=== PATIENT | female | born 2000 | race American Indian/Alaskan Native ===

== ENCOUNTER 2019-01-27 04:04 | Inpatient (IN) | payer MEDICAID ==
[2019-01-27] MEDS ORDERED: Tranexamic Acid 1,000 MG in Sodium Chloride 0.9% 100 ML IV PRN (05:26)
[2019-01-27] MEDS ORDERED: Lidocaine 1% 50 ML MDV INJECT PRN (05:26)
[2019-01-27] MEDS ORDERED: Nalbuphine 10 MG/1 ML Vial IVPUSH PRN (05:26)
[2019-01-27] MEDS ORDERED: Misoprostol 200 MCG Tab PO PRN (05:26)
[2019-01-27] MEDS ORDERED: Methylergonovine 0.2 MG/1 ML Amp IM PRN (05:26)
[2019-01-27] MEDS ORDERED: Sodium Chloride 0.9% 10 ML Syringe FLUSH PRN (05:26)
[2019-01-27] MEDS ORDERED: Misoprostol 25 MCG (1/4 of 100 MCG) Tab PO PRN (05:26)
[2019-01-27] MEDS ORDERED: Butorphanol 1 MG/ML SDV IVPUSH PRN (05:26)
[2019-01-27] MEDS ORDERED: Water For Irrigation,Sterile 1,000 ML Container IRR PRN (05:26)
[2019-01-27] MEDS ORDERED: Carboprost Tromethamine 250 MCG/1 ML Amp IM PRN (05:26)
[2019-01-27] MEDS ORDERED: Sodium Chloride 0.9% 2.5 ML Syringe FLUSH PRN (05:26)
[2019-01-27] MEDS ORDERED: Misoprostol 25 MCG (1/4 of 100 MCG) Tab VAG PRN (05:26)
[2019-01-27] MEDS ORDERED: Sodium Chloride 0.9% 10 ML SDV IV PRN (05:26)
[2019-01-27] MEDS ORDERED: Terbutaline 1 MG/ML SDV SUBCUT PRN (05:26)
[2019-01-27] MEDS ORDERED: Oxytocin/0.9 % Sodium Chloride 30 UNIT/500 ML BAG IV SCH ×3 (05:30→17:30)
[2019-01-27] MEDS ORDERED: Misoprostol 25 MCG (1/4 of 100 MCG) Tab ONE (10:08)
[2019-01-27] MEDS ORDERED: Misoprostol 50 MCG (1/2 of 100 MCG) Tab PO SCH (10:15)
[2019-01-27] MEDS: Lactated Ringers 1,000 ML IV SCH ×2 (13:22→17:31)
[2019-01-27] MEDS ORDERED: fentaNYL 100 MCG/2 ML SDV ONE (14:47)
--- NOTE | 2019-01-27 16:07 | PCM.PREANE ---
Preanesthetic Assessment - Anesthesia/Transfusion/Family Hx Anesthesia History: No Prior Anesthesia Family History of Anesthesia Reaction: No Transfusion History: No Prior Transfusion(s) Intubation History: Unknown - Review of Systems General: No Symptoms Pulmonary: No Symptoms Cardiovascular: No Symptoms Gastrointestinal: Abdominal Pain (labor pain) Neurological: No Symptoms Other: Reports: None - Physical Assessment Height: 5 ft 2 in Weight: 92.986 kg ASA Class: 2 Mental Status: Alert & Oriented x3 Airway Class: Mallampati = 2 Dentition: Reports: Normal Dentition Thyro-Mental Finger Breadths: 3 Mouth Opening Finger Breadths: 3 ROM/Head Extension: Full Lungs: Clear to Auscultation, Normal Respiratory Effort Cardiovascular: Regular Rate, Regular Rhythm - Lab Values: Laboratory Last Values WBC 11.40 K/uL (4.0-11.0) H 01/27/19 06:31 RBC 4.32 M/uL (4.30-5.90) 01/27/19 06:31 Hgb 10.1 g/dL (12.0-16.0) L 01/27/19 06:31 Hct 33.6 % (36.0-46.0) L 01/27/19 06:31 MCV 77.8 fL (80.0-98.0) L 01/27/19 06:31 MCH 23.4 pg (27.0-32.0) L 01/27/19 06:31 MCHC 30.1 g/dL (31.0-37.0) L 01/27/19 06:31 RDW Std Deviation 44.9 fl (28.0-62.0) 01/27/19 06:31 RDW Coeff of Rober 16 % (11.0-15.0) H 01/27/19 06:31 Plt Count 212 K/uL (150-400) 01/27/19 06:31 MPV 10.30 fL (7.40-12.00) 01/27/19 06:31 Nucleated RBC % 0.0 /100WBC 01/27/19 06:31 Nucleated RBCs # 0 K/uL 01/27/19 06:31 Blood Type O POSITIVE 01/27/19 06:31 Antibody Screen NEGATIVE 01/27/19 06:31 - Allergies Allergies/Adverse Reactions: Allergies Allergy/AdvReac Type Severity Reaction Status Date / Time No Known Allergies Allergy Verified 01/27/19 04:19 - Blood Blood Available: No - Anesthesia Plan Pre-Op Medication Ordered: None - Acknowledgements Anesthesia Type Planned: Epidural Pt an Appropriate Candidate for the Planned Anesthesia: Yes Alternatives and Risks of Anesthesia Discussed w Pt/Guardian: Yes Pt/Guardian Understands and Agrees with Anesthesia Plan: Yes PreAnesthesia Questionnaire - Past Health History Medical/Surgical History: Denies 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: Hematologic History: Reports: Anemia - HOME MEDS Home Medications: Home Meds Vits #93/Iron Fum/FA [ Formula Tablet] 1 each PO DAILY [History] - CURRENT (IN HOUSE) MEDS Current Meds: Current Medications Butorphanol Tartrate (Stadol) 1 mg IVPUSH Q1H PRN PRN Reason: Pain Carboprost Tromethamine (Hemabate Ds) 250 mcg IM ASDIRECTED PRN PRN Reason: Post Hemorrhage Tranexamic Acid 1,000 mg/ (Sodium Chloride) 110 mls @ 660 mls/hr IV ONETIME PRN PRN Reason: Bleeding Lactated Ringer's (Ringers, Lactated) 1,000 mls @ 150 mls/hr IV ASDIRECTED [place] Last Admin: 01/27/19 13:22 Dose: 999 mls/hr Oxytocin/Sodium Chloride (Oxytocin 30 Unit/500 Ml-Ns) 30 unit in 500 mls @ 999 mls/hr IV TITRATE [facility] Lidocaine HCl (Xylocaine 1%) 50 ml INJECT ONETIME PRN PRN Reason: Laceration repair Methylergonovine Maleate (Methergine) 0.2 mg IM ASDIRECTED PRN PRN Reason: Post Hemorrhage Misoprostol (Cytotec) 200 mcg PO ONETIME PRN PRN Reason: Post Hemorrhage Misoprostol (Cytotec) 50 mcg PO Q4H [facility] Nalbuphine HCl (Nubain) 10 mg IVPUSH Q1H PRN PRN Reason: Pain (severe 7-10) Last Admin: 01/27/19 14:21 Dose: 10 mg Sodium Chloride (Saline Flush) 10 ml FLUSH ASDIRECTED PRN PRN Reason: Keep Vein Open Sodium Chloride (Saline Flush) 2.5 ml FLUSH ASDIRECTED PRN PRN Reason: Keep Vein Open Sodium Chloride (Normal Saline) 10 ml IV ASDIRECTED PRN PRN Reason: IV Use Sterile Water (Sterile Water For Irrigation) 1,000 ml IRR ASDIRECTED PRN PRN Reason: delivery Discontinued Medications Fentanyl (Sublimaze) Confirm Administered Dose 100 mcg .ROUTE .STK-MED ONE Stop: 01/27/19 14:48 Oxytocin/Sodium Chloride (Oxytocin 30 Unit/500 Ml-Ns) 30 unit in 500 mls @ 2 mls/hr IV TITRATE [facility]; Protocol Fentanyl/Bupivacaine HCl (Hznyhilh-Mskxa-Au 2 Mcg/Ml-0.125%) Confirm Administered Dose 100 mls @ as directed .ROUTE .Enel OGK-5-MED ONE Stop: 01/27/19 14:49 Misoprostol (Cytotec) 25 mcg PO Q4HR PRN PRN Reason: Cervical Ripening Last Admin: 01/27/19 05:59 Dose: 25 mcg Misoprostol (Cytotec) 25 mcg VAG Q4H PRN PRN Reason: Cervical Ripening Last Admin: 01/27/19 06:00 Dose: 25 mcg Misoprostol (Cytotec) Confirm Administered Dose 50 mcg .ROUTE .Enel OGK-5-MED ONE Stop: 01/27/19 10:09 Last Admin: 01/27/19 10:20 Dose: 50 mcg Terbutaline Sulfate (Brethine) 0.25 mg SUBCUT ASDIRECTED PRN PRN Reason: Tacysystole
[2019-01-27] MEDS ORDERED: Lidocaine 1% 50 ML MDV ONE (20:10)
[2019-01-27] MEDS ORDERED: Benzocaine/Menthol 20%-0.5% Spray 78 GM Cannister TOP PRN (20:12)
[2019-01-27] MEDS ORDERED: Ibuprofen 800 MG Tab PO PRN (20:12)
[2019-01-27] MEDS ORDERED: oxyCODONE 5 MG Tab PO PRN (20:12)
[2019-01-27] MEDS ORDERED: Docusate Sodium 100 MG Cap PO PRN (20:12)
[2019-01-27] MEDS ORDERED: Lanolin 100% Cream 7 GM Tube TOP PRN (20:12)
[2019-01-27] MEDS ORDERED: Ibuprofen 400 MG Tab PO PRN (20:12)
[2019-01-27] MEDS ORDERED: Acetaminophen 500 MG Tab PO PRN ×2 (20:12)
[2019-01-27] MEDS ORDERED: Bisacodyl 10 MG Supp RECTAL PRN (20:12)
[2019-01-27] MEDS ORDERED: Witch Hazel Medicated Pads 40/Jar TOP PRN (20:12)
--- NOTE | 2019-01-28 01:50 | OR ---
SURGEON: Rashaun Willis MD DATE OF PROCEDURE: Ms. Kovacs is 18 years old, primigravida. She is followed in our clinic primarily by me. She had no complication. Her GBS status is negative. She is admitted with a spontaneous rupture of the membrane. At the time of admission, she was dilated to 1 cm, 70% to 80%, vertex -3. She was induced with Cytotec and Pitocin. She responded to that and she progressed somewhat according to the curve and she had epidural anesthesia for labor analgesia at 6 cm. The patient progressed to complete complete, vertex +2, with significant part of the head is visible. The patient was tired and was unable to push beyond that. I was consulted. I came to evaluate the patient. The patient is in an occipitoanterior position, and it is felt to be that it is low down enough to be for a vacuum extraction, and after obtaining consent of the patient and explanation of the vacuum extraction process was done, Kiwi vacuum extraction is performed, and vaginal delivery was accomplished without any problem. The fetus cried immediately, and score and weight is not available at the time of the dictation. The placenta delivered spontaneous, complete, and intact. There was a second-degree perineal laceration. No other laceration. The laceration was repaired in layer by Marely Salgado, nurse reservoir engineering advisor. Estimated blood loss was about 300-350 mL. heart rate was category I. There was no complication during the labor and the delivery process. ROBERT / GRACIA /[id number]
--- NOTE | 2019-01-28 07:51 | PCM48HPAN ---
Post Anesthesia Note - EVALUATION WITHIN 48HRS OF ANESTHETIC Vital Signs in Normal Range: Yes Patient Participated in Evaluation: Yes Respiratory Function Stable: Yes Airway Patent: Yes Cardiovascular Function Stable: Yes Hydration Status Stable: Yes Pain Control Satisfactory: Yes Nausea and Vomiting Control Satisfactory: Yes Mental Status Recovered: Yes Pulse Rate: 91 SaO2: 98 Resp Rate: 16 Temperature: 97.8 F Blood Pressure: 115/64
--- NOTE | 2019-01-28 08:58 | PCM.DCSUM1 ---
Discharge Summary - Hospital Course Free Text/Narrative:: Discharge home with infant. Follow up in 6 weeks for . Diagnosis: Stroke: No - Discharge Data Discharge Date: 01/28/19 Discharge Disposition: Home, Self-Care 01 Condition: Good - Discharge Diagnosis/Problem(s) (1) Vacuum extraction, delivered, current hospitalization SNOMED Code(s): 185963023 ICD Code: O66.5 - ATTEMPTED APPLICATION OF VACUUM EXTRACTOR AND FORCEPS Status: Acute Priority: High Current Visit: Yes - Patient Instructions Diet: Usual Diet as Tolerated Activity: As Tolerated, No Strenuous Activities, Rest and Relax Today Driving: May Drive Today Showering/Bathing: May Shower Notify Provider of: Fever, Increased Pain, Swelling and Redness, Nausea and/or Vomiting Other/Special Instructions: Discharge home with infant. Follow up in 6 weeks for . - Discharge Plan *PRESCRIPTION DRUG MONITORING PROGRAM REVIEWED*: Not Applicable *COPY OF PRESCRIPTION DRUG MONITORING REPORT IN PATIENT DANIA: Not Applicable Prescriptions/Med Rec: Ibuprofen [Motrin] 800 mg PO Q6H PRN #90 tablet PRN Reason: Pain Home Medications: Home Meds Vits #93/Iron Fum/FA [ Formula Tablet] 1 each PO DAILY [History] Ibuprofen [Motrin] 800 mg PO Q6H PRN #90 tablet 01/28/19 [Rx] Oxygen Therapy Mode: Room Air Referrals: [facility] [Outside] Rashaun Willis MD [Physician] - 03/10/19 1:30 pm - Discharge Summary/Plan Comment DC Time >30 min.: No - General Info Date of Service: 01/28/19 Functional Status: Reports: Pain Controlled, Tolerating Diet, Ambulating, Urinating - Review of Systems General: Reports: No Symptoms HEENT: Reports: No Symptoms Pulmonary: Reports: No Symptoms Cardiovascular: Reports: No Symptoms Gastrointestinal: Reports: No Symptoms Genitourinary: Reports: No Symptoms Musculoskeletal: Reports: No Symptoms Skin: Reports: No Symptoms Neurological: Reports: No Symptoms Psychiatric: Reports: No Symptoms - Patient Data Vitals - Most Recent: Last Vital Signs Temp 36.6 C 01/28/19 07:51 Pulse 91 01/28/19 07:51 Resp 16 01/28/19 07:51 BP 115/64 01/28/19 07:51 Pulse Ox 98 01/28/19 07:51 Weight - Most Recent: 92.986 kg Lab Results - Last 24 hrs: Laboratory Results - last 24 hr 01/28/19 Range/Units 06:00 Hgb 8.7 L (12.0-16.0) g/dL Hct 28.3 L (36.0-46.0) % Med Orders - Current: Current Medications Acetaminophen (Tylenol Extra Strength) 500 mg PO Q4H PRN PRN Reason: Pain Acetaminophen (Tylenol Extra Strength) 1,000 mg PO Q4H PRN PRN Reason: Pain Benzocaine/Menthol (Dermoplast Pain Relief 20%-0.5% [place]) 78 gm TOP ASDIRECTED PRN PRN Reason: Perineal Comfort Measure Bisacodyl (Dulcolax) 10 mg RECTAL ONETIME PRN PRN Reason: Constipation Butorphanol Tartrate (Stadol) 1 mg IVPUSH Q1H PRN PRN Reason: Pain Carboprost Tromethamine (Hemabate Ds) 250 mcg IM ASDIRECTED PRN PRN Reason: Post Hemorrhage Docusate Sodium (Colace) 100 mg PO BID PRN PRN Reason: Constipation Emollient Ointment (Lansinoh Hpa) 0 gm TOP ASDIRECTED PRN PRN Reason: Sore Nipples Tranexamic Acid 1,000 mg/ (Sodium Chloride) 110 mls @ 660 mls/hr IV ONETIME PRN PRN Reason: Bleeding Lactated Ringer's (Ringers, Lactated) 1,000 mls @ 150 mls/hr IV ASDIRECTED [place] Last Admin: 01/27/19 17:31 Dose: 125 mls/hr Oxytocin/Sodium Chloride (Oxytocin 30 Unit/500 Ml-Ns) 30 unit in 500 mls @ 999 mls/hr IV TITRATE [place] Last Admin: 01/27/19 20:04 Dose: 999 mls/hr Oxytocin/Sodium Chloride (Oxytocin 30 Unit/500 Ml-Ns) 30 unit in 500 mls @ 2 mls/hr IV TITRATE [facility]; Protocol Last Titration: 01/27/19 18:41 Dose: 4 munits/min, 4 mls/hr Ibuprofen (Motrin) 400 mg PO Q4H PRN PRN Reason: Pain Ibuprofen (Motrin) 800 mg PO Q6H PRN PRN Reason: Pain Last Admin: 01/28/19 05:56 Dose: 800 mg Lidocaine HCl (Xylocaine 1%) 50 ml INJECT ONETIME PRN PRN Reason: Laceration repair Methylergonovine Maleate (Methergine) 0.2 mg IM ASDIRECTED PRN PRN Reason: Post Hemorrhage Misoprostol (Cytotec) 200 mcg PO ONETIME PRN PRN Reason: Post Hemorrhage Misoprostol (Cytotec) 50 mcg PO Q4H [place] Nalbuphine HCl (Nubain) 10 mg IVPUSH Q1H PRN PRN Reason: Pain (severe 7-10) Last Admin: 01/27/19 14:21 Dose: 10 mg Oxycodone HCl (Oxycodone) 5 mg PO Q2H PRN PRN Reason: Pain Sodium Chloride (Saline Flush) 10 ml FLUSH ASDIRECTED PRN PRN Reason: Keep Vein Open Sodium Chloride (Saline Flush) 2.5 ml FLUSH ASDIRECTED PRN PRN Reason: Keep Vein Open Sodium Chloride (Normal Saline) 10 ml IV ASDIRECTED PRN PRN Reason: IV Use Sterile Water (Sterile Water For Irrigation) 1,000 ml IRR ASDIRECTED PRN PRN Reason: delivery Witch Michaela (Tucks) 1 pad TOP ASDIRECTED PRN PRN Reason: comfort care Discontinued Medications Fentanyl (Sublimaze) Confirm Administered Dose 100 mcg .ROUTE .STK-MED ONE Stop: 01/27/19 14:48 Oxytocin/Sodium Chloride (Oxytocin 30 Unit/500 Ml-Ns) 30 unit in 500 mls @ 2 mls/hr IV TITRATE [facility]; Protocol Fentanyl/Bupivacaine HCl (Kzrcikwu-Bnawv-Zr 2 Mcg/Ml-0.125%) Confirm Administered Dose 100 mls @ as directed .ROUTE .STK-MED ONE Stop: 01/27/19 14:49 Lidocaine HCl (Xylocaine 1%) Confirm Administered Dose 50 ml .ROUTE .STK-MED ONE Stop: 01/27/19 20:11 Misoprostol (Cytotec) 25 mcg PO Q4HR PRN PRN Reason: Cervical Ripening Last Admin: 01/27/19 05:59 Dose: 25 mcg Misoprostol (Cytotec) 25 mcg VAG Q4H PRN PRN Reason: Cervical Ripening Last Admin: 01/27/19 06:00 Dose: 25 mcg Misoprostol (Cytotec) Confirm Administered Dose 50 mcg .ROUTE .STK-MED ONE Stop: 01/27/19 10:09 Last Admin: 01/27/19 10:20 Dose: 50 mcg Terbutaline Sulfate (Brethine) 0.25 mg SUBCUT ASDIRECTED PRN PRN Reason: Tacysystole - Exam General: Reports: Alert, Oriented, Cooperative, No Acute Distress Lungs: Reports: Normal Respiratory Effort. Denies: Decreased Breath Sounds GI/Abdominal Exam: Soft, Non-Tender (Female) Exam: Normal External Exam, Vaginal Bleeding Rectal (Female) Exam: Deferred Back Exam: Reports: Normal Inspection, Full Range of Motion Extremities: Normal Inspection, Normal Range of Motion, Non-Tender, No Pedal Edema Skin: Reports: Warm, Dry, Intact Wound/Incisions: Reports: Healing Well Neurological: Reports: No New Focal Deficit, Normal Speech, Normal Tone, Strength Equal Bilateral Psy/Mental Status: Reports: Alert, Normal Affect, Normal Mood
== END 2019-01-28 23:03 | disposition home or self-care (01) | DRG 807 ==
LOC: MW.OBCHECK 04:04 → MW.OB 04:07 → MW.OBCHECK 05:26 → OBSVTOIN 20:03 → MW.OB 01-28 02:55
PROVIDERS: ADMIT Obstetrics & Gynecology; ATTEND Obstetrics & Gynecology
PROC: 10D07Z6 Extraction of Products of Conception, Vacuum, Via Natural or Artificial Opening (ICD-10-PCS; principal; 2019-01-27)
PROC: 0KQM0ZZ Repair Perineum Muscle, Open Approach (ICD-10-PCS; 2019-01-27)
PROC: 3E0P7VZ Introduction of Hormone into Female Reproductive, Via Natural or Artificial Opening (ICD-10-PCS; 2019-01-27)
PROC: 3E033VJ Introduction of Other Hormone into Peripheral Vein, Percutaneous Approach (ICD-10-PCS; 2019-01-27)
DX: O99.02 Anemia complicating childbirth (principal); O70.1 Second degree perineal laceration during delivery; D64.9 Anemia, unspecified; Z3A.00 Weeks of gestation of pregnancy not specified; Z37.0 Single live birth
CPT/HCPCS: 01967; 36415; 51702; 59025; 59409; 85014; 85018; 85027; 86850; 86900; 86901; A9270-GY; J2001; J2300; J2590; J3010; J7120

== ENCOUNTER 2019-09-10 12:47 | Emergency (ER) | payer BC, MEDICAID ==
[2019-09-10] MEDS ORDERED: Tetracaine HCl/PF 0.5% 4 ML Bottle EYEBOTH ONE (12:49)
--- NOTE | 2019-09-10 12:59 | EDM.PDOC ---
ED HPI GENERAL MEDICAL PROBLEM - General Chief Complaint: Eye Problems Stated Complaint: EYE IRRITATION Time Seen by Provider: 09/10/19 12:48 Source of Information: Reports: Patient History Limitations: Reports: No Limitations - History of Present Illness INITIAL COMMENTS - FREE TEXT/NARRATIVE: HISTORY AND PHYSICAL: History of present illness: Patient is a 18-year-old female who presents to the emergency room with complaints of left eye irritation and green discharge. She states she woke up this morning with green crusty drainage along the eye. Prior to this morning she had no concerns complications or possible foreign body injury. She states she has been wiping away the drainage but noticed her sclera is irritated. She has no ocular pain with movement. Denies any headache, fever, neck pain or stiffness. Review of systems: As per history of present illness and below otherwise all systems reviewed and negative. Past medical history: As per history of present illness and as reviewed below otherwise noncontributory. Surgical history: As per history of present illness and as reviewed below otherwise noncontributory. Social history: See social history for further information Family history: As per history of present illness and as reviewed below otherwise noncontributory. Physical exam: General: Well developed and well nourished 18 year old female. A&O x 3. Nontoxic appearing and in no acute distress. VSS and have been reviewed by me. HEENT: Atraumatic, normocephalic, pupils equal and reactive bilaterally, negative for conjunctival pallor or scleral icterus, left eye scleral injection with green crusty drainage along the lower lash line, mucous membranes moist, TMs normal bilaterally, throat clear, neck supple, nontender, trachea midline. No drooling or trismus noted. No meningeal signs. No hot potato voice noted. Lungs: Clear to auscultation, breath sounds equal bilaterally, chest nontender. Heart: S1S2, regular rate and rhythm without overt murmur Abdomen: Soft, nondistended, nontender. Skin: Intact, warm, dry. No lesions or rashes noted. Extremities: Atraumatic, moves all extremities per self without difficulty or deficits, negative for cords or calf pain. Neurovascular unremarkable. Neuro: Awake, alert, oriented. Cranial nerves II through XII unremarkable. Cerebellum unremarkable. Motor and sensory unremarkable throughout. Exam nonfocal. Notes: Eye exam is normal other than the concern of conjunctivitis. Medication and supportive care measures were reviewed and discussed. Voices understanding and is agreeable to plan of care. Denies any further questions or concerns at this time. Diagnostics: None Therapeutics: Erythromycin Prescription: Erythromycin Impression: Conjunctivitis, left Plan: 1. Good handwashing as this is contagious. You can apply the Erythromycin ointment 5x daily over the next 5 days. 2. Please follow-up with ophthalmology as we discussed. Return to the ED as needed and as discussed. Definitive disposition and diagnosis as appropriate pending reevaluation and review of above. 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 ED EXAM GENERAL W FULL EYE - Physical Exam Exam: See Below (See dictation) Course - Vital Signs Last Recorded V/S: Last Vital Signs Temp 96.8 F L 09/10/19 12:56 Pulse 106 H 09/10/19 12:56 Resp 16 09/10/19 12:56 BP 153/66 H 09/10/19 12:56 Pulse Ox 100 09/10/19 12:56 - Orders/Labs/Meds Orders: Active Orders 24 hr Category Date Time Status Erythromycin Base [Erythromycin 0.5% Ophth Oint] Med 09/10/19 13:02 Once 1 gm EYELF ONETIME ONE Meds: Medications Discontinued Medications Generic Name Dose Route Start Last Admin Trade Name Freq PRN Reason Stop Dose Admin Tetracaine HCl 1 ml 09/10/19 12:49 Tetracaine 0.5% Steri-Unit Shahla EYEBOTH 09/10/19 12:50 ASDIRECTED ONE Departure - Departure Time of Disposition: 13:06 Disposition: Home, Self-Care 01 Clinical Impression: Conjunctivitis Qualifiers: Conjunctivitis type: acute Acute conjunctivitis type: bacterial Laterality: left Qualified Code(s): H10.32 - Unspecified acute conjunctivitis, left eye - Discharge Information Instructions: Bacterial Conjunctivitis Forms: ED Department Discharge Additional Instructions: The following information is given to patients seen in the emergency department who are being discharged to home. This information is to outline your options for follow-up care. We provide all patients seen in our emergency department with a follow-up referral. The need for follow-up, as well as the timing and circumstances, are variable depending upon the specifics of your emergency department visit. If you don't have a primary care physician on staff, we will provide you with a referral. We always advise you to contact your personal physician following an emergency department visit to inform them of the circumstance of the visit and for follow-up with them and/or the need for any referrals to a consulting specialist. The emergency department will also refer you to a specialist when appropriate. This referral assures that you have the opportunity for follow-up care with a specialist. All of these measure are taken in an effort to provide you with optimal care, which includes your follow-up. Under all circumstances we always encourage you to contact your private physician who remains a resource for coordinating your care. When calling for follow-up care, please make the office aware that this follow-up is from your recent emergency room visit. If for any reason you are refused follow-up, please contact the [facility] Emergency Department at and asked to speak to the emergency department charge nurse. [facility] [address] [place], [place] [id number] [place] [address] 1. Good handwashing as this is contagious. You can apply the Erythromycin ointment 5x daily over the next 5 days. 2. Please follow-up with ophthalmology as we discussed. Return to the ED as needed and as discussed. Sepsis Event Note - Focused Exam Vital Signs: Vital Signs Temp Pulse Resp BP Pulse Ox 09/10/19 12:56 96.8 F L 106 H 16 153/66 H 100 Date Exam was Performed: 09/10/19 Time Exam was Performed: 13:02 - My Orders Last 24 Hours: My Active Orders 09/10/19 13:02 Erythromycin Base [Erythromycin 0.5% Ophth Oint] 1 gm EYELF ONETIME ONE - Assessment/Plan Last 24 Hours: My Active Orders 09/10/19 13:02 Erythromycin Base [Erythromycin 0.5% Ophth Oint] 1 gm EYELF ONETIME ONE
[2019-09-10] MEDS ORDERED: Erythromycin Base 0.5% Ophth Oint 1 GM Tube EYELF ONE (13:02)
== END 2019-09-10 13:11 | disposition home or self-care (01) ==
LOC: MW.ED 12:47
DX: H10.32 Unspecified acute conjunctivitis, left eye (principal)
CPT/HCPCS: 99283; A9270; 99282

== ENCOUNTER 2020-10-04 00:12 | Inpatient (IN) | payer MEDICAID ==
[2020-10-04] MEDS ORDERED: Misoprostol 200 MCG Tab PO PRN (02:44)
[2020-10-04] MEDS ORDERED: Carboprost Tromethamine 250 MCG/1 ML Amp IM PRN (02:44)
[2020-10-04] MEDS ORDERED: Sodium Chloride 0.9% 10 ML SDV IV PRN (02:44)
[2020-10-04] MEDS ORDERED: Sodium Chloride 0.9% 2.5 ML Syringe FLUSH PRN (02:44)
[2020-10-04] MEDS ORDERED: Butorphanol 1 MG/ML SDV IVPUSH PRN (02:44)
[2020-10-04] MEDS ORDERED: Lidocaine 1% 50 ML MDV INJECT PRN (02:44)
[2020-10-04] MEDS ORDERED: Ondansetron 4 MG/2 ML SDV IVPUSH PRN (02:44)
[2020-10-04] MEDS ORDERED: Water For Irrigation,Sterile 1,000 ML Container IRR PRN (02:44)
[2020-10-04] MEDS ORDERED: Ampicillin 2 GM in Sodium Chloride 0.9% 100 ML IV ONE ×2 (02:44→03:00)
[2020-10-04] MEDS ORDERED: Methylergonovine 0.2 MG/1 ML Amp IM PRN (02:44)
[2020-10-04] MEDS ORDERED: Sodium Chloride 0.9% 10 ML Syringe FLUSH PRN (02:44)
[2020-10-04] MEDS ORDERED: Tranexamic Acid 1,000 MG in Sodium Chloride 0.9% 100 ML IV PRN (02:44)
[2020-10-04] MEDS ORDERED: Nalbuphine 10 MG/1 ML Vial IVPUSH PRN (02:44)
[2020-10-04] MEDS ORDERED: Oxytocin/0.9 % Sodium Chloride 30 UNIT/500 ML BAG IV SCH ×2 (02:45→06:00)
[2020-10-04] MEDS ORDERED: Sodium Chloride 0.9% 100 ML ONE (03:15)
[2020-10-04] MEDS: Lactated Ringers 1,000 ML IV SCH ×3 (03:23→04:21)
[2020-10-04] MEDS ORDERED: fentaNYL 100 MCG/2 ML SDV ONE ×2 (03:52→10:53)
[2020-10-04] MEDS ORDERED: Ropivacaine HCl/PF 100 ML ONE ×2 (03:52→10:53)
--- NOTE | 2020-10-04 04:16 | PCM.PREANE ---
Preanesthetic Assessment - Anesthesia/Transfusion/Family Hx Anesthesia History: Prior Anesthesia Without Reaction Family History of Anesthesia Reaction: No Transfusion History: No Prior Transfusion(s) Intubation History: Unknown - Physical Assessment NPO Status Date: 10/03/20 NPO Status Time: 20:00 Weight: 92.986 kg ASA Class: 2 - Lab Values: Laboratory Last Values WBC 11.39 K/uL (4.0-11.0) H 10/04/20 03:05 RBC 4.23 M/uL (4.30-5.90) L 10/04/20 03:05 Hgb 8.9 g/dL (12.0-16.0) L 10/04/20 03:05 Hct 29.5 % (36.0-46.0) L 10/04/20 03:05 MCV 69.7 fL (80.0-98.0) L 10/04/20 03:05 MCH 21.0 pg (27.0-32.0) L 10/04/20 03:05 MCHC 30.2 g/dL (31.0-37.0) L 10/04/20 03:05 RDW Std Deviation 43.2 fl (28.0-62.0) 10/04/20 03:05 RDW Coeff of Rober 18 % (11.0-15.0) H 10/04/20 03:05 Plt Count 231 K/uL (150-400) 10/04/20 03:05 MPV 10.80 fL (7.40-12.00) 10/04/20 03:05 SARS-CoV-2 RNA (ARDEN) NEGATIVE (NEGATIVE) 10/04/20 02:52 Blood Type O POSITIVE 10/04/20 03:05 Antibody Screen NEGATIVE 10/04/20 03:05 - Allergies Allergies/Adverse Reactions: Allergies Allergy/AdvReac Type Severity Reaction Status Date / Time No Known Allergies Allergy Verified 09/10/19 13:00 - Acknowledgements Anesthesia Type Planned: Epidural Pt an Appropriate Candidate for the Planned Anesthesia: Yes Alternatives and Risks of Anesthesia Discussed w Pt/Guardian: Yes Pt/Guardian Understands and Agrees with Anesthesia Plan: Yes PreAnesthesia Questionnaire - Past Health History Medical/Surgical History: Denies Medical/Surgical History HEENT History: Reports: None Cardiovascular History: Reports: None Respiratory History: Reports: None Gastrointestinal History: Reports: None Genitourinary History: Reports: None 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: Musculoskeletal History: Reports: None Neurological History: Reports: None Psychiatric History: Reports: None Endocrine/Metabolic History: Reports: None Hematologic History: Reports: Anemia Immunologic History: Reports: None Oncologic (Cancer) History: Reports: None Dermatologic History: Reports: None - Infectious Disease History Infectious Disease History: Reports: None - Past Surgical History Head Surgeries/Procedures: Reports: None HEENT Surgical History: Reports: None Cardiovascular Surgical History: Reports: None Respiratory Surgical History: Reports: None GI Surgical History: Reports: None Female Surgical History: Reports: None Endocrine Surgical History: Reports: None Neurological Surgical History: Reports: None Musculoskeletal Surgical History: Reports: None Oncologic Surgical History: Reports: None Dermatological Surgical History: Reports: None - HOME MEDS Home Medications: Home Meds Contrtol 1 tab PO DAILY 09/10/19 [History] Erythromycin Base [Erythromycin 0.5% Ophth Oint] 1 applic OP Q4H 5 Days #1 tube 09/10/19 [Rx] - CURRENT (IN HOUSE) MEDS Current Meds: Current Medications Butorphanol Tartrate (Butorphanol 1 Mg/Ml Sdv) 1 mg IVPUSH Q1H PRN PRN Reason: Pain Carboprost Tromethamine (Carboprost Tromethamine 250 Mcg/1 Ml Amp) 250 mcg IM ASDIRECTED PRN PRN Reason: Post Hemorrhage Lactated Ringer's (Ringers, Lactated) 1,000 mls @ 150 mls/hr IV ASDIRECTED [facility] Last Admin: 10/04/20 03:45 Dose: 999 mls/hr Documented by: Oxytocin/Sodium Chloride (Oxytocin 30 Unit/500 Ml-Ns) 30 unit in 500 mls @ 999 mls/hr IV TITRATE [facility] Tranexamic Acid 1,000 mg/ (Sodium Chloride) 110 mls @ 660 mls/hr IV ONETIME PRN PRN Reason: Bleeding Ampicillin Sodium 1 gm/ Sodium (Chloride) 100 mls @ 200 mls/hr IV Q4H [facility] Lidocaine HCl (Lidocaine 1% 50 Ml Mdv) 50 ml INJECT ONETIME PRN PRN Reason: Laceration repair Methylergonovine Maleate (Methylergonovine 0.2 Mg/1 Ml Amp) 0.2 mg IM ASDIRECTED PRN PRN Reason: Post Hemorrhage Misoprostol (Misoprostol 200 Mcg Tab) 200 mcg PO ONETIME PRN PRN Reason: Post Hemorrhage Nalbuphine HCl (Nalbuphine 10 Mg/1 Ml Vial) 10 mg IVPUSH Q1H PRN PRN Reason: Pain (severe 7-10) Ondansetron HCl (Ondansetron 4 Mg/2 Ml Sdv) 4 mg IVPUSH Q6H PRN PRN Reason: Nausea/Vomiting Sodium Chloride (Sodium Chloride 0.9% 10 Ml Syringe) 10 ml FLUSH ASDIRECTED PRN PRN Reason: Keep Vein Open Sodium Chloride (Sodium Chloride 0.9% 2.5 Ml Syringe) 2.5 ml FLUSH ASDIRECTED PRN PRN Reason: Keep Vein Open Sodium Chloride (Sodium Chloride 0.9% 10 Ml Sdv) 10 ml IV ASDIRECTED PRN PRN Reason: IV Use Sterile Water (Water For Irrigation,Sterile 1,000 Ml Container) 1,000 ml IRR ASDIRECTED PRN PRN Reason: delivery Discontinued Medications Fentanyl (Fentanyl 100 Mcg/2 Ml Sdv) Confirm Administered Dose 100 mcg .ROUTE .STK-MED ONE Stop: 10/04/20 03:53 Ampicillin Sodium 2 gm/ Sodium (Chloride) 100 mls @ 200 mls/hr IV ONETIME ONE Stop: 10/04/20 03:13 Ampicillin Sodium 2 gm/ Sodium (Chloride) 100 mls @ 200 mls/hr IV ONETIME ONE Stop: 10/04/20 03:29 Last Admin: 10/04/20 03:23 Dose: 200 mls/hr Documented by: Sodium Chloride (Normal Saline) Confirm Administered Dose 100 mls @ as directed .ROUTE .STK-MED ONE Stop: 10/04/20 03:16 Ropivacaine (Naropin 0.2%) Confirm Administered Dose 100 mls @ as directed .ROUTE .STK-MED ONE Stop: 10/04/20 03:53
--- NOTE | 2020-10-04 04:18 | PCM.PRNOTE ---
- Free Text/Narrative Note: Anes Note Patient requests epidural for L&D. Sitting position. Level L3-L4 midline approach. Sterile technique. Chloraprep scrub to lumbar area. Sterile fenestrated drape applied. Epidural space easily achieved single attempt with ease using NANCY technique. NANCY at 3 cm. Cath threaded 5 cm with ease. Cath secured a t skin using sterile clear adhesive dressing. Test 0405 3 cc 1.5% lido with epi negative. Load 0408 10 cc 0.2% ropiviciane with 1 mcg cc fentanyl added in slow divided doses. 0412 Pump started with 90 cc same solution. Rate is 8 cc hr with 6 cc q 20 min prn bolus. Eric well. Time with patient [id number] Bishop PASCAL
[2020-10-04] MEDS ORDERED: Terbutaline 1 MG/ML SDV SUBCUT PRN (06:00)
[2020-10-04] MEDS ORDERED: Ampicillin 1 GM in Sodium Chloride 0.9% 100 ML IV SCH (08:00)
[2020-10-04] MEDS: Ampicillin 1 GM in Sodium Chloride 0.9% 100 ML IV SCH ×2 (10:26→17:07)
--- NOTE | 2020-10-04 11:11 | PCM.PRNOTE ---
- Free Text/Narrative Note: Anes Note Epidural infusion complete. A new bag of 95 cc 0.2% ropivicaine with 1 mcg cc fentanyl added was placed. Rate is 8 cc hr with 6 cc q 20 min prn bolus. Patient reports excellent analgesia. Time with patient [id number] Bishop Samson CRNA
[2020-10-04] MEDS ORDERED: Lanolin 100% Cream 7 GM Tube TOP PRN (13:47)
[2020-10-04] MEDS ORDERED: oxyCODONE 5 MG Tab PO PRN (13:47)
[2020-10-04] MEDS ORDERED: Ibuprofen 400 MG Tab PO PRN (13:47)
[2020-10-04] MEDS ORDERED: Ibuprofen 800 MG Tab PO PRN (13:47)
[2020-10-04] MEDS ORDERED: Docusate Sodium 100 MG Cap PO PRN (13:47)
[2020-10-04] MEDS ORDERED: Witch Hazel Medicated Pads 40/Jar TOP PRN (13:47)
[2020-10-04] MEDS ORDERED: Benzocaine/Menthol 20%-0.5% Spray 78 GM Cannister TOP PRN (13:47)
[2020-10-04] MEDS ORDERED: Bisacodyl 10 MG Supp RECTAL PRN (13:47)
[2020-10-04] MEDS ORDERED: Acetaminophen 500 MG Tab PO PRN ×2 (13:47)
[2020-10-04] MEDS ORDERED: Iron Sucrose Complex 500 MG in Sodium Chloride 0.9% 250 ML IV ONE (13:47)
--- NOTE | 2020-10-04 13:50 | PCM.DEL ---
L & D Note - General Info Date of Service: 10/04/20 Mother's Due Date: 10/02/20 - Delivery Note Labor: Augmented by Oxytocin Delivery Outcome: Livebirth Infant Delivery Method: Spontaneous Vaginal Delivery-Single Presentation: Left Occiput Anterior (BRIDGER) Nuchal Cord: Present (x2, tight) Anesthesia Type: Epidural, Local Anesthetic: Lidocaine (Xylocaine) 1% Plain Local Anesthetic Volume: 5cc Amniotic Fluid Description: Meconium Stained Laceration: 2nd Degree Suture type: Vicryl Suture size: 2-0 Placenta: Intact, Spontaneous Cord: 3 Vessels Estimated Blood Loss: 350 Resuscitation Needed: No : Suctioned, Bulb Syringe, Stimulated, Warmed, Warmer Used Provider: Nathaly Hong Score 1 min: 3 Score 5 min: 8 Delivery Comments (Free Text/Narrative):: Dictation #[id number] - General Info Date of Service: 10/04/20 - Patient Data Weight - Most Recent: 205 lb Lab Results Last 24 Hours: Laboratory Results - last 24 hr 10/04/20 10/04/20 10/04/20 Range/Units 02:52 03:05 03:05 WBC 11.39 H (4.0-11.0) K/uL RBC 4.23 L (4.30-5.90) M/uL Hgb 8.9 L (12.0-16.0) g/dL Hct 29.5 L (36.0-46.0) % MCV 69.7 L (80.0-98.0) fL MCH 21.0 L (27.0-32.0) pg MCHC 30.2 L (31.0-37.0) g/dL RDW Std Deviation 43.2 (28.0-62.0) fl RDW Coeff of Rober 18 H (11.0-15.0) % Plt Count 231 (150-400) K/uL MPV 10.80 (7.40-12.00) fL SARS-CoV-2 RNA (ARDEN) NEGATIVE (NEGATIVE) Blood Type O POSITIVE Antibody Screen NEGATIVE Med Orders - Current: Current Medications Butorphanol Tartrate (Butorphanol 1 Mg/Ml Sdv) 1 mg IVPUSH Q1H PRN PRN Reason: Pain Last Admin: 10/04/20 13:25 Dose: 1 mg Documented by: Carboprost Tromethamine (Carboprost Tromethamine 250 Mcg/1 Ml Amp) 250 mcg IM ASDIRECTED PRN PRN Reason: Post Hemorrhage Lactated Ringer's (Ringers, Lactated) 1,000 mls @ 150 mls/hr IV ASDIRECTED [facility] Last Admin: 10/04/20 04:21 Dose: 125 mls/hr Documented by: Oxytocin/Sodium Chloride (Oxytocin 30 Unit/500 Ml-Ns) 30 unit in 500 mls @ 999 mls/hr IV TITRATE [facility] Tranexamic Acid 1,000 mg/ (Sodium Chloride) 110 mls @ 660 mls/hr IV ONETIME PRN PRN Reason: Bleeding Oxytocin/Sodium Chloride (Oxytocin 30 Unit/500 Ml-Ns) 30 unit in 500 mls @ 1 mls/hr IV TITRATE [facility]; Protocol Last Titration: 10/04/20 09:36 Dose: 6 munits/min, 6 mls/hr Documented by: Ampicillin Sodium 1 gm/ Sodium (Chloride) 100 mls @ 200 mls/hr IV Q4H [facility] Last Admin: 10/04/20 10:26 Dose: 200 mls/hr Documented by: Lidocaine HCl (Lidocaine 1% 50 Ml Mdv) 50 ml INJECT ONETIME PRN PRN Reason: Laceration repair Last Admin: 10/04/20 13:22 Dose: 50 ml Documented by: Methylergonovine Maleate (Methylergonovine 0.2 Mg/1 Ml Amp) 0.2 mg IM ASDIRECTED PRN PRN Reason: Post Hemorrhage Misoprostol (Misoprostol 200 Mcg Tab) 200 mcg PO ONETIME PRN PRN Reason: Post Hemorrhage Nalbuphine HCl (Nalbuphine 10 Mg/1 Ml Vial) 10 mg IVPUSH Q1H PRN PRN Reason: Pain (severe 7-10) Ondansetron HCl (Ondansetron 4 Mg/2 Ml Sdv) 4 mg IVPUSH Q6H PRN PRN Reason: Nausea/Vomiting Sodium Chloride (Sodium Chloride 0.9% 10 Ml Syringe) 10 ml FLUSH ASDIRECTED PRN PRN Reason: Keep Vein Open Sodium Chloride (Sodium Chloride 0.9% 2.5 Ml Syringe) 2.5 ml FLUSH ASDIRECTED PRN PRN Reason: Keep Vein Open Sodium Chloride (Sodium Chloride 0.9% 10 Ml Sdv) 10 ml IV ASDIRECTED PRN PRN Reason: IV Use Sterile Water (Water For Irrigation,Sterile 1,000 Ml Container) 1,000 ml IRR ASDIRECTED PRN PRN Reason: delivery Terbutaline Sulfate (Terbutaline 1 Mg/Ml Sdv) 0.25 mg SUBCUT ASDIRECTED PRN PRN Reason: Tacysystole Discontinued Medications Fentanyl (Fentanyl 100 Mcg/2 Ml Sdv) Confirm Administered Dose 100 mcg .ROUTE .STK-MED ONE Stop: 10/04/20 03:53 Fentanyl (Fentanyl 100 Mcg/2 Ml Sdv) Confirm Administered Dose 100 mcg .ROUTE .STK-MED ONE Stop: 10/04/20 10:54 Ampicillin Sodium 2 gm/ Sodium (Chloride) 100 mls @ 200 mls/hr IV ONETIME ONE Stop: 10/04/20 03:13 Ampicillin Sodium 2 gm/ Sodium (Chloride) 100 mls @ 200 mls/hr IV ONETIME ONE Stop: 10/04/20 03:29 Last Admin: 10/04/20 03:23 Dose: 200 mls/hr Documented by: Sodium Chloride (Normal Saline) Confirm Administered Dose 100 mls @ as directed .ROUTE .STK-MED ONE Stop: 10/04/20 03:16 Ampicillin Sodium 1 gm/ Sodium (Chloride) 100 mls @ 200 mls/hr IV Q4H [facility] Last Admin: 10/04/20 06:15 Dose: 200 mls/hr Documented by: Ropivacaine (Naropin 0.2%) Confirm Administered Dose 100 mls @ as directed .ROUTE .STK-MED ONE Stop: 10/04/20 03:53 Ropivacaine (Naropin 0.2%) Confirm Administered Dose 100 mls @ as directed .ROUTE .STK-MED ONE Stop: 10/04/20 10:54 - Problem List Review Problem List Initiated/Reviewed/Updated: Yes - My Orders Last 24 Hours: My Active Orders 10/04/20 13:47 Patient Status [ADT] Routine May Shower [RC] ASDIRECTED Up ad Sabrina [RC] ASDIRECTED Vital Signs [RC] PER UNIT ROUTINE Acetaminophen [Tylenol Extra Strength] 1,000 mg PO Q4H PRN Acetaminophen [Tylenol Extra Strength] 500 mg PO Q4H PRN Benzocaine/Menthol [Dermoplast Pain Relief 20%-0.5% [place]] 78 gm TOP ASDIRECTED PRN Docusate Sodium [Colace] 100 mg PO BID PRN Ibuprofen [Motrin] 400 mg PO Q4H PRN Ibuprofen [Motrin] 800 mg PO Q6H PRN Iron Sucrose Complex [Venofer] 500 mg Sodium Chloride 0.9% [Normal Saline] 250 ml IV ONETIME Lanolin [Lansinoh HPA] See Dose Instructions TOP ASDIRECTED PRN bisacodyL [Dulcolax] 10 mg RECTAL ONETIME PRN oxyCODONE 5 mg PO Q2H PRN witch Vaibhav [Tucks] 1 pad TOP ASDIRECTED PRN Assess Lochia [WOMSER] Per Unit Routine Assess Uterine Involution [WOMSER] Per Unit Routine Peripheral IV Discontinue [OM.PC] Routine 10/05/20 05:11 HEMOGLOBIN/HEMATOCRIT,HH [HEME] Timed - Assessment Assessment:: 20 year old G2 now P2 female s/p - Plan Plan:: Routine cares * Rh positive, rubella immune * GBS positive, s/p IV Ampicillin during labor * PO pain medications ordered PRN * Encourage ambulation and fluid intake when able * Regular diet as tolerated * Plans to breastfeed Anemia * Hgb upon admission 8.3 * Asymptomatic * EBL 350cc, will monitor bleeding closely * IV iron ordered Dispo: stable. Anticipate discharge 48hrs post delivery pending maternal/ status.
--- NOTE | 2020-10-04 15:49 | OR ---
SURGEON: LJ AMBROCIO MD DATE OF PROCEDURE: 10/04/2020 PROCEDURE: Spontaneous vaginal delivery. PREOPERATIVE DIAGNOSES: 1. 40 weeks 2 days intrauterine . 2. Active labor with spontaneous rupture of membranes. 3. Group B Streptococcus positive. 4. Meconium-stained amniotic fluid. POSTOPERATIVE DIAGNOSES: 1. 40 weeks 2 days intrauterine . 2. Active labor with spontaneous rupture of membranes. 3. Group B Streptococcus positive. 4. Meconium-stained amniotic fluid. PROCEDURES: Spontaneous vaginal delivery, second-degree midline laceration repair. PRIMARY SURGEON: Lj Ambrocio MD ANESTHESIA: 1. Epidural. 2. 10 mL of local anesthetic. ESTIMATED BLOOD LOSS: 300 mL. COMPLICATIONS: None known. FINDINGS: Viable female, score 3 at one minute and 8 at five minutes. Weight was 7 pounds 3 ounces. Spontaneous vaginal delivery. Intact placenta, 3-vessel cord. Nuchal cord x2. Delivered through. DISPOSITION: Infant and mother in RP. DESCRIPTION OF PROCEDURE: The patient is a 20-year-old, 2, para 1, at 40 weeks and 2 days gestation, who presented on the web developer programmer of 10/04/2020 with spontaneous contractions every 4 to 6 minutes. The patient was observed on labor and delivery for approximately an hour. During that time, spontaneous rupture of membranes occurred with meconium-stained fluid. She was then admitted and received an epidural for pain management. IV ampicillin was started due to GBS positive in . Routine labs were drawn. After admission, her contractions spaced out and no cervical change was made. Therefore, she was initiated on Pitocin augmentation. The patient progressed nicely through the morning and I was notified by nursing staff at 11:30 that the patient was completely dilated and +2 station and feeling the urge to push. I then arrived shortly thereafter, and the patient was placed in a modified dorsal lithotomy position and prepped in a usual manner. Pushing efforts began, and over an hour and 15 minutes of pushing, she was able to deliver 's head atraumatically spontaneously followed by anterior and posterior shoulders and remainder of the body without difficulty. Tight nuchal cord x2 was noted at the time of delivery and reduced after the baby delivered. Infant was then handed off to nursing staff and dry house worker who evaluated the at the warmer. After the cord was clamped and cut, cord, arterial cord venous, cord blood samples were obtained. Light pressure then was applied while the placenta was delivered spontaneously intact. Vigorous fundal massage was then applied while 30 units of Pitocin were delivered in 500 mL of IV fluid. Upon inspection of the cervix, vaginal sidewall, and perineum, there was found to be second-degree midline laceration. The patient had increasing discomfort with pelvic exam and 10 mL of local anesthetic were then injected into the laceration. After pain control was achieved, the second-degree perineal laceration was then repaired in the usual fashion using 2-0 Vicryl. Hemostasis was apparent. Sponge, lap, and needle counts were correct. Hemostasis was evident. Uterus was made firm. The patient remained in LDRP along with the . NESS / GRACIA /[id number]
--- NOTE | 2020-10-05 09:00 | PCM.PNPP ---
- General Info Date of Service: 10/05/20 Subjective Update: Patient resting comfortably in bed during rounds. Pain well controlled. Ambulating and voiding without difficulty. Lochia decreasing. Tolerating regular diet. , going well per patient. Denies lightheadedness, dizziness or headache. Declines additional IV iron infusion today. - General Info Date of Service: 10/05/20 - Patient Data Vital Signs - Most Recent: Last Vital Signs Temp 97.6 F 10/05/20 04:56 Pulse 88 10/05/20 04:56 Resp 16 10/05/20 04:56 BP 119/75 10/05/20 04:56 Pulse Ox 96 10/05/20 04:56 Weight - Most Recent: 205 lb Lab Results - Last 24 Hours: Laboratory Results - last 24 hr 10/04/20 10/05/20 Range/Units 13:14 05:27 Hgb 8.1 L (12.0-16.0) g/dL Hct 26.9 L (36.0-46.0) % Cord ABG pH 7.261 (7.18-7.38) Cord ABG Base Excess -8 (-10--2) Cord VBG pH 7.296 (7.25-7.45) Cord VBG Base Excess -7 (-10--2) Med Orders - Current: Current Medications Acetaminophen (Acetaminophen 500 Mg Tab) 500 mg PO Q4H PRN PRN Reason: Pain Acetaminophen (Acetaminophen 500 Mg Tab) 1,000 mg PO Q4H PRN PRN Reason: Pain Benzocaine/Menthol (Benzocaine/Menthol 20%-0.5% [place] 78 Gm Cannister) 78 gm TOP ASDIRECTED PRN PRN Reason: Perineal Comfort Measure Last Admin: 10/04/20 17:16 Dose: 1 canister Documented by: Bisacodyl (Bisacodyl 10 Mg Supp) 10 mg RECTAL ONETIME PRN PRN Reason: Constipation Butorphanol Tartrate (Butorphanol 1 Mg/Ml Sdv) 1 mg IVPUSH Q1H PRN PRN Reason: Pain Last Admin: 10/04/20 13:25 Dose: 1 mg Documented by: Carboprost Tromethamine (Carboprost Tromethamine 250 Mcg/1 Ml Amp) 250 mcg IM ASDIRECTED PRN PRN Reason: Post Hemorrhage Docusate Sodium (Docusate Sodium 100 Mg Cap) 100 mg PO BID PRN PRN Reason: Constipation Emollient Ointment (Lanolin 100% Cream 7 Gm Tube) 0 gm TOP ASDIRECTED PRN PRN Reason: Sore Nipples Last Admin: 10/04/20 17:16 Dose: 1 tube Documented by: Lactated Ringer's (Ringers, Lactated) 1,000 mls @ 150 mls/hr IV ASDIRECTED [facility] Last Admin: 10/04/20 04:21 Dose: 125 mls/hr Documented by: Oxytocin/Sodium Chloride (Oxytocin 30 Unit/500 Ml-Ns) 30 unit in 500 mls @ 999 mls/hr IV TITRATE [facility] Tranexamic Acid 1,000 mg/ (Sodium Chloride) 110 mls @ 660 mls/hr IV ONETIME PRN PRN Reason: Bleeding Oxytocin/Sodium Chloride (Oxytocin 30 Unit/500 Ml-Ns) 30 unit in 500 mls @ 1 mls/hr IV TITRATE [facility]; Protocol Last Titration: 10/04/20 09:36 Dose: 6 munits/min, 6 mls/hr Documented by: Ampicillin Sodium 1 gm/ Sodium (Chloride) 100 mls @ 200 mls/hr IV Q4H [facility] Last Admin: 10/04/20 17:07 Dose: Not Given Documented by: Ibuprofen (Ibuprofen 400 Mg Tab) 400 mg PO Q4H PRN PRN Reason: Pain Ibuprofen (Ibuprofen 800 Mg Tab) 800 mg PO Q6H PRN PRN Reason: Pain Lidocaine HCl (Lidocaine 1% 50 Ml Mdv) 50 ml INJECT ONETIME PRN PRN Reason: Laceration repair Last Admin: 10/04/20 13:22 Dose: 50 ml Documented by: Methylergonovine Maleate (Methylergonovine 0.2 Mg/1 Ml Amp) 0.2 mg IM ASDIRECTED PRN PRN Reason: Post Hemorrhage Misoprostol (Misoprostol 200 Mcg Tab) 200 mcg PO ONETIME PRN PRN Reason: Post Hemorrhage Nalbuphine HCl (Nalbuphine 10 Mg/1 Ml Vial) 10 mg IVPUSH Q1H PRN PRN Reason: Pain (severe 7-10) Ondansetron HCl (Ondansetron 4 Mg/2 Ml Sdv) 4 mg IVPUSH Q6H PRN PRN Reason: Nausea/Vomiting Oxycodone HCl (Oxycodone 5 Mg Tab) 5 mg PO Q2H PRN PRN Reason: Pain Sodium Chloride (Sodium Chloride 0.9% 10 Ml Syringe) 10 ml FLUSH ASDIRECTED PRN PRN Reason: Keep Vein Open Sodium Chloride (Sodium Chloride 0.9% 2.5 Ml Syringe) 2.5 ml FLUSH ASDIRECTED PRN PRN Reason: Keep Vein Open Sodium Chloride (Sodium Chloride 0.9% 10 Ml Sdv) 10 ml IV ASDIRECTED PRN PRN Reason: IV Use Sterile Water (Water For Irrigation,Sterile 1,000 Ml Container) 1,000 ml IRR ASDIRECTED PRN PRN Reason: delivery Terbutaline Sulfate (Terbutaline 1 Mg/Ml Sdv) 0.25 mg SUBCUT ASDIRECTED PRN PRN Reason: Tacysystole Witch Vaibhav (Witch Vaibhav Medicated Pads 40/Jar) 1 pad TOP ASDIRECTED PRN PRN Reason: comfort care Last Admin: 10/04/20 17:16 Dose: 1 pad Documented by: Discontinued Medications Fentanyl (Fentanyl 100 Mcg/2 Ml Sdv) Confirm Administered Dose 100 mcg .ROUTE .STK-MED ONE Stop: 10/04/20 03:53 Fentanyl (Fentanyl 100 Mcg/2 Ml Sdv) Confirm Administered Dose 100 mcg .ROUTE .STK-MED ONE Stop: 10/04/20 10:54 Ampicillin Sodium 2 gm/ Sodium (Chloride) 100 mls @ 200 mls/hr IV ONETIME ONE Stop: 10/04/20 03:13 Ampicillin Sodium 2 gm/ Sodium (Chloride) 100 mls @ 200 mls/hr IV ONETIME ONE Stop: 10/04/20 03:29 Last Admin: 10/04/20 03:23 Dose: 200 mls/hr Documented by: Sodium Chloride (Normal Saline) Confirm Administered Dose 100 mls @ as directed .ROUTE .STK-MED ONE Stop: 10/04/20 03:16 Ampicillin Sodium 1 gm/ Sodium (Chloride) 100 mls @ 200 mls/hr IV Q4H [facility] Last Admin: 10/04/20 06:15 Dose: 200 mls/hr Documented by: Ropivacaine (Naropin 0.2%) Confirm Administered Dose 100 mls @ as directed .ROUTE .STK-MED ONE Stop: 10/04/20 03:53 Ropivacaine (Naropin 0.2%) Confirm Administered Dose 100 mls @ as directed .ROUTE .STK-MED ONE Stop: 10/04/20 10:54 Iron Sucrose 500 mg/ Sodium (Chloride) 275 mls @ 62.5 mls/hr IV ONETIME ONE Stop: 10/04/20 18:10 Last Admin: 10/04/20 15:40 Dose: 62.5 mls/hr Documented by: - Infant Interaction Disposition, : [place] in Room with Family Interaction: Holding Feeding: Breastfed ; Nursed Well Support Person: Mother - Recovery Exam Fundal Tone: Firm Fundal Level: 1 Fingerbreadths Below Umbilicus Lochia Amount: Scant Lochia Color: Rubra/Red Perineum Description: Intact, Minimal Bruising/Swelling Bladder Status: Voiding Urinary Elimination: Voided - Exam General: Alert Lungs: Normal Respiratory Effort Cardiovascular: Regular Rate GI/Abdominal Exam: Soft, Non-Tender Extremities: Normal Range of Motion, Non-Tender, Pedal Edema (1+) Skin: Warm, Dry, Intact Wound/Incisions: Healing Well Neurological: No New Focal Deficit Psy/Mental Status: Normal Mood - Problem List Review Problem List Initiated/Reviewed/Updated: Yes - My Orders Last 24 Hours: My Active Orders 10/04/20 13:47 Patient Status [ADT] Routine May Shower [RC] ASDIRECTED Up ad Sabrina [RC] ASDIRECTED Vital Signs [RC] PER UNIT ROUTINE Acetaminophen [Tylenol Extra Strength] 1,000 mg PO Q4H PRN Acetaminophen [Tylenol Extra Strength] 500 mg PO Q4H PRN Benzocaine/Menthol [Dermoplast Pain Relief 20%-0.5% [place]] 78 gm TOP ASDIRECTED PRN Docusate Sodium [Colace] 100 mg PO BID PRN Ibuprofen [Motrin] 400 mg PO Q4H PRN Ibuprofen [Motrin] 800 mg PO Q6H PRN Lanolin [Lansinoh HPA] See Dose Instructions TOP ASDIRECTED PRN bisacodyL [Dulcolax] 10 mg RECTAL ONETIME PRN oxyCODONE 5 mg PO Q2H PRN witch Vaibhav [Tucks] 1 pad TOP ASDIRECTED PRN Assess Lochia [WOMSER] Per Unit Routine Assess Uterine Involution [WOMSER] Per Unit Routine Peripheral IV Discontinue [OM.PC] Routine 10/05/20 Breakfast Regular Diet [DIET] - Assessment Assessment:: 20 year old G2 now P2 female PPD 1 s/p - Plan Plan:: Routine cares * Rh positive, rubella immune * GBS positive, s/p IV Ampicillin during labor * PO pain medications ordered PRN * Encourage ambulation and fluid intake when able * Regular diet as tolerated * , nursing support PRN today * Reviewed options for contraception. Desires Mirena IUD at 8 weeks and Depo provera in the interim. Anemia * Hgb upon admission 8.9, 8.1 this AM * Asymptomatic * EBL 350cc, will monitor bleeding closely * IV iron x1, declines additional doses Dispo: stable. Anticipate discharge today pending maternal/ status. Revi ewed discharge precautions including fever/chills, intractable nausea/vomiting, lightheadness/dizziness, severe pain not controlled by Tylenol or Ibuprofen or heavy vaginal bleeding.
--- NOTE | 2020-10-05 09:25 | PCM48HPAN ---
Post Anesthesia Note - EVALUATION WITHIN 48HRS OF ANESTHETIC Vital Signs in Normal Range: Yes Patient Participated in Evaluation: Yes Respiratory Function Stable: Yes Airway Patent: Yes Cardiovascular Function Stable: Yes Hydration Status Stable: Yes Pain Control Satisfactory: Yes Nausea and Vomiting Control Satisfactory: Yes Mental Status Recovered: Yes Vital Signs: Last Vital Signs Temp 36.4 C 10/05/20 09:08 Pulse 80 10/05/20 09:08 Resp 16 10/05/20 09:08 BP 105/62 10/05/20 09:08 Pulse Ox 98 10/05/20 09:08
== END 2020-10-05 17:00 | disposition home or self-care (01) | DRG 807 ==
LOC: MW.OB 00:12 → MW.OBCHECK 00:12 → MW.OB 02:44 → MW.OBCHECK 02:44 → OBSVTOIN 13:47 → MW.OB 18:00
PROVIDERS: ADMIT Obstetrics & Gynecology; ATTEND Obstetrics & Gynecology
PROC: 10E0XZZ Delivery of Products of Conception, External Approach (ICD-10-PCS; principal; 2020-10-04)
PROC: 0KQM0ZZ Repair Perineum Muscle, Open Approach (ICD-10-PCS; 2020-10-04)
PROC: 3E0R3BZ Introduction of Anesthetic Agent into Spinal Canal, Percutaneous Approach (ICD-10-PCS; 2020-10-04)
DX: O99.824 Streptococcus B carrier state complicating childbirth (principal); Z37.0 Single live birth; Z3A.40 40 weeks gestation of pregnancy; O70.1 Second degree perineal laceration during delivery; O77.0 Labor and delivery complicated by meconium in amniotic fluid; O69.81X0 Labor and delivery complicated by cord around neck, without compression, not applicable or unspecified; Z20.822 Contact with and (suspected) exposure to COVID-19
CPT/HCPCS: 01967; 36415; 51702; 59025; 59409; 82803; 85014; 85018; 85027; 86592; 86850; 86900; 86901; 88307; A9270-GY; J0290; J0595; J1756; J2001; J2590; J2795; J3010; J7050; J7120; U0002